=== PATIENT | female | born 1950 | race Hispanic/Latino ===

== ENCOUNTER 2021-09-08 01:49 | Emergency (ER) | payer MEDICARE ==
[2021-09-08 04:44] VITALS: BP 101/64
--- NOTE | 2021-09-08 05:36 | Emergency Department Report ---
HPI - General Chief Complaint: Dyspnea/Respdistress PUI?: No Time Seen by Provider: 09/08/21 05:24 - HPI HPI: 71-year-old female brought in by EMS for shortness of breath chest pain which she states is allergic reaction. Patient reports she had a layover in [place] and while attempting to wait for her next flight, she ate a burrito. 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 She states she did began walking quickly to try to catch her flight at the next terminal but she states she felt short of breath and tightness in her chest at that time. She states she took Benadryl prior to arrival. EMS was called. Per staff report EMS did not provide the patient with medications ED Past Medical Hx - Past Medical History Previous Medical History?: No - Surgical History Past Surgical History?: No - Family History Family history: no significant - Social History Smoking Status: Never Smoker Substance Use Type: None - Medications Home Medications: Home Medications Medication Instructions Recorded Confirmed Last Taken Type methylPREDNISolone [Medrol 4MG 4 mg PO DAILY #21 09/08/21 Unknown Rx DOSEPAK (21 tabs)] ED Review of Systems ROS: Stated complaint: CHEST PAIN/ANXIETY Other details as noted in HPI Comment: All other systems reviewed and negative Respiratory: shortness of breath Cardiovascular: chest pain, orthopnea Skin: rash, pruritus Physical Exam - Physical Exam Vital Signs: Vital Signs 09/08/21 09/08/21 09/08/21 02:09 03:18 04:44 Temperature 97.7 F Pulse Rate 68 75 Respiratory 16 16 Rate Blood Pressure 133/42 101/64 [Right] O2 Sat by Pulse 98 96 99 Oximetry ED Course Vital Signs 09/08/21 09/08/21 09/08/21 02:09 03:18 04:44 Temperature 97.7 F Pulse Rate 68 75 Respiratory 16 16 Rate Blood Pressure 133/42 101/64 [Right] O2 Sat by Pulse 98 96 99 Oximetry - Reevaluation(s) Reevaluation #1: 09/08/21 05:00 Patient is comfortable and well-appearing. She is speaking in full sentences and is observed typing on her personal cellular telephone. No drooling no stridor no respiratory distress, nontoxic Reevaluation #2: 09/08/21 05:33 Patient reports to this provider that she is refusing all diagnostic imaging and serum lab analysis stating "I do not want extra money on a bill." I reiterated to the patient again that she presented with complaints of chest pain or shortness of breath and in the setting of her symptoms I think it would be prudent to perform further work-up to make sure there is no obvious life- threatening cause for her symptoms. Patient is awake alert and oriented` to person place time and situation and is mentating well. She does not appear to be in any extremis. ED Medical Decision Making - EKG Data EKG shows normal: sinus rhythm Rate: normal - EKG Data When compared to previous EKG there are: no significant change Interpretation: no acute changes, normal EKG - Medical Decision Making 71-year-old female [place] for evaluation of rash, facial swelling, chest pain shortness of breath. Vital signs stable. Patient was ordered for serum labs and diagnostic imaging. She adamantly refused these and requested to be discharged to home. Throughout my multiple reassessments of the patient she remained ANO x4, mentating well, and per my clinical assessment manifesting this decision making capacity that was appropriate. Patient informed of and educated concerning the risk of refusal of evaluation of serum labs and diagnostic imaging. Patient informed that risk included but were not limited to: Disability which may be temporary or permanent, and . Patient informed that additional risk may include "heart failure, heart attack, respiratory failure, need for CPR, need for intubation, need to be placed on a ventilator, prolonged periods of low to no oxygen to brain, paralysis which may be partial or complete, chronic bedbound state, multiorgan failure, broken ribs, need for tracheostomy, chronic pain, and chronic infection. She is able to explain these risk back to me in her own words without difficulty or confusion. Her explanations appear appropriate in layman's terms. Nevertheless patient states she is refusing diagnostic labs and imaging and is demanding to be discharged home. Patient signed out AGAINST MEDICAL ADVICE. Critical Care Time: No Critical care attestation.: If time is entered above; I have spent that time in minutes in the direct care of this critically ill patient, excluding procedure time. ED Disposition Clinical Impression: Left against medical advice, Dyspnea Disposition: LEFT AGAINST MEDICAL ADVICE Is pt being admited?: No Does the pt Need Aspirin: No Condition: Stable Additional Instructions: You are leaving AGAINST MEDICAL ADVICE. I strongly recommended that you remain in the emergency department to undergo testing of your labs as well as to undergo a chest x-ray to rule out any life-threatening causes of your symptoms that brought you to the hospital today. By leaving you accepting sole responsibility that you may experience a disabling or life-threatening process that was not found on your evaluation today Follow-up with your primary care doctor within 1-2 business days for immediate reassessment. Begin taking steroids for the next several days to decrease your likelihood of having allergic reaction. Also place please take [id number] famotidine as well. Continue take Benadryl as needed for itching. Return to the nearest emergency department if your symptoms persist or worsen or if any other new worrisome symptoms develop. Prescriptions: methylPREDNISolone [Medrol 4MG DOSEPAK (21 tabs)] 4 mg PO DAILY #21 Referrals: PRIMARY CARE, [Primary Care Provider] - 3-5 Days Forms: AMA Form
== END 2021-09-08 05:52 | disposition left against medical advice (07) ==
LOC: ED 01:49
DX: R06.00 Dyspnea, unspecified (principal)
CPT/HCPCS: 99283